=== PATIENT | female | born 1945 | race Caucasian/White ===

== ENCOUNTER 2019-06-21 07:14 | Inpatient (IN) | payer OTHER ==
[~2019-06-21] VITALS: Ht 162.6 cm; Wt 63.4 kg
[~2019-06-21 07:14] MED LIST: ASPI-404 PO; ATOR10TA PO; CALC-509 PO; DIME50TA PO; HYDR25TA4 PO; LISI-710 PO; LORA-622 PO; OMEP20TA PO; [UNRECOGNIZED DRUG - CODE] PO
[2019-06-21] MEDS ORDERED: ceFAZolin 1GM/50ML 100 ML IV ONE (08:44)
[2019-06-21] MEDS ORDERED: ETOMIDATE (2MG/ML) 20ML VIAL IV ONE (11:48)
[2019-06-21] MEDS ORDERED: ROCURONIUM 10MG/ML 10ML VIAL IV ONE (11:49)
[2019-06-21] MEDS ORDERED: LIDOCAINE 1% (LOCAL ANESTH.) PF 5ml SDV ONE (11:49)
[2019-06-21] MEDS ORDERED: ACETAMINOPHEN IV 100 ML IV ONE (12:38)
[2019-06-21] MEDS ORDERED: PREGABALIN CAPSULE 75 MG CAP ONE (12:43)
[2019-06-21] MEDS ORDERED: CELECOXIB 100 MG CAP ONE (12:43)
[2019-06-21] MEDS ORDERED: PREGABALIN 25 MG CAP PO ONE (12:45)
[2019-06-21] MEDS ORDERED: CELECOXIB 100 MG CAP PO ONE (12:45)
[2019-06-21] MEDS ORDERED: TRANEXAMIC ACID 20 ML ONE (12:51)
[2019-06-21] MEDS ORDERED: BUPIVACAINE 0.25% INJ 50ML VIAL ONE (12:51)
[2019-06-21] MEDS ORDERED: EPINEPHrine HCL 1 MG/1 ML AMP ONE ×5 (12:52→14:56)
[2019-06-21] MEDS ORDERED: SUCCINYLCHOLINE CHLORIDE 20 MG/ML 10ML VIAL IV ONE (13:00)
[2019-06-21] MEDS ORDERED: MIDAZOLAM HCL 1MG/1ML-2 ML VIAL ONE (13:03)
[2019-06-21] MEDS ORDERED: METOCLOPRAMIDE HCL 5MG/ml INJ 2ml VIAL ONE (13:03)
[2019-06-21] MEDS ORDERED: fentaNYL CITRATE 100 MCG/2 ML VL ONE (13:51)
[2019-06-21] MEDS ORDERED: SODIUM CHLORIDE LOCK 10 ML ONE ×3 (14:06→17:30)
[2019-06-21] MEDS ORDERED: ePHEDrine SULFATE 50 MG/ML AMP ONE (14:06)
[2019-06-21] MEDS ORDERED: PHENYLEPHRINE HCL 10 MG/ML VL ONE (14:36)
[2019-06-21] MEDS ORDERED: MEPERIDINE HCL (50 MG/ML) 1 ML VIAL ONE (15:21)
[2019-06-21] MEDS ORDERED: ePHEDrine SULFATE 50 MG/ML AMP IV PRN (16:30)
[2019-06-21] MEDS ORDERED: hydrALAZINE HCL 20 MG/ML VL IV PRN (16:30)
[2019-06-21] MEDS ORDERED: ONDANSETRON HCL 4 MG/2 ML VIAL IV PRN (16:30)
[2019-06-21] MEDS ORDERED: HYDROmorphone HCL 2 MG/ML VL IV PRN ×3 (16:30→18:00)
[2019-06-21] MEDS ORDERED: NALOXONE HCL 0.4 MG/ML VIAL IV PRN (16:30)
[2019-06-21] MEDS ORDERED: VANCOMYCIN HCL 1000 MG VL ONE (17:28)
[2019-06-21] MEDS ORDERED: GLYCOPYRROLATE 0.2 MG/ML 1ML VIAL ONE (17:29)
[2019-06-21] MEDS ORDERED: KETOROLAC TROMETH 30 MG/ML 1ML VIAL ONE (17:29)
[2019-06-21] MEDS ORDERED: NEOSTIGMINE 1 MG/ML INJ (10mg/10ML VIAL) ONE (17:29)
[2019-06-21] MEDS ORDERED: MORPHINE SULF(PF) 0.5MG/ML 10ML VIAL ONE (17:29)
[2019-06-21] MEDS ORDERED: ceFAZolin 1GM VL ONE (17:30)
[2019-06-21] MEDS ORDERED: ACETAMINOPHEN/CODEINE#3 (300/30mg) TAB PO PRN (18:00)
[2019-06-21] MEDS ORDERED: HYDROcodone-ACET 5/325MG TAB PO PRN ×3 (18:00)
[2019-06-21] MEDS ORDERED: ceFAZolin 1GM/50ML 50 ML IV SCH (18:00)
--- NOTE | 2019-06-21 18:50 | NUR ---
Patient on O2 at 3 LPM. Non acute distress noted. Bedside commode provided. Bed alarm on.
--- NOTE | 2019-06-21 18:50 | NUR ---
MS admit from Surgery/PACU Received patient via bed from PACU/Surgery. Patient awake, oriented x4, two Aqua cell dressing on the right shoulder, no bleeding noted. METAL WEIGHER said the Aqua cell dressing is good for two weeks. Patient denies pain at this time. Daughter Lilibeth Geller and a male family member at bedside.
[2019-06-21] MEDS: D5W/LACTATED RINGERS 1,000 ML IV SCH (18:59)
[2019-06-21 19:00] VITALS: BP 87/51
--- NOTE | 2019-06-21 19:05 | NUR ---
Endorsed patient to [facility] and Resource [facility].
--- NOTE | 2019-06-21 19:32 | NUR ---
Opening Shift Note Assumed care of patient. Patient is awake and alert. Denies pain, no signs or symptoms of distress noted. Family is at bedside. Instructed patient on plan of care, will continue to monitor.
[2019-06-21 20:00] VITALS: BP 87/51
[2019-06-21 21:00] VITALS: BP 86/51
[2019-06-21 21:30] VITALS: BP 86/43
[2019-06-21 22:00] VITALS: BP 99/55
[2019-06-21] MEDS ORDERED: ATORVASTATIN 20 MG TAB PO SCH (22:00)
[2019-06-21] MEDS: DIMENHYDRINATE 50 MG PO SCH (22:00)
[2019-06-21] MEDS: [UNRECOGNIZED DRUG - OTHER] PO SCH (22:00)
[2019-06-21] MEDS: ceFAZolin 1GM 2 GM in D5W 5% 100 ML IV SCH (22:05)
[2019-06-21] MEDS: CALCIUM W/VIT D (600MG/400IU) TAB PO SCH (22:14)
[2019-06-21 23:00] VITALS: BP 96/47
[2019-06-22] VITALS (11 sets, daily range): BP systolic 79–127; BP diastolic 43–64
[2019-06-22] MEDS: D5W/LACTATED RINGERS 1,000 ML IV SCH ×2 (03:57→13:55)
[2019-06-22] MEDS: ceFAZolin 1GM 2 GM in D5W 5% 100 ML IV SCH ×2 (05:44→15:52)
[2019-06-22] MEDS: ACETAMINOPHEN 325 MG TAB PO PRN ×2 (06:27→15:52)
--- NOTE | 2019-06-22 06:50 | NUR ---
New Iv started PATIENT CALLED STATING IV DISCOMFORT. IV IN RIGHT HAND INFILTRATED. HAND ELEVATED AND WARM COMPRESS APPLIED. NEW IV 22 GAUGE STARTED ON LEFT HAND AFTER ONE ATTEMPT. FLUIDS RESTARTED. PATIENT TOLERATING WELL.
[2019-06-22] MEDS: DIMENHYDRINATE 50 MG PO SCH (10:00)
[2019-06-22] MEDS ORDERED: PANTOPRAZOLE 40 MG TAB PO SCH (10:00)
[2019-06-22] MEDS ORDERED: HCTZ 25 MG TAB PO SCH (10:00)
[2019-06-22] MEDS ORDERED: LORATADINE 10 MG TAB PO SCH (10:00)
[2019-06-22] MEDS: [UNRECOGNIZED DRUG - OTHER] PO SCH (10:00)
[2019-06-22] MEDS ORDERED: LISINOPRIL 10 MG TAB PO SCH (10:00)
--- NOTE | 2019-06-22 10:48 | NUR ---
Discharge planning per SS consult, patient has orders to dc home. Placed a call to the attending nurse Araseli and was advised that patient had a shoulder surgery and did not have any needs on discharge.
[2019-06-22] MEDS: CALCIUM W/VIT D (600MG/400IU) TAB PO SCH (10:51)
--- NOTE | 2019-06-22 14:59 | NUR ---
Assessment Pt is a 74 yr old alert and oriented female. Pt lives with her daughter Lambert Grimes, who is her emergency contact at [phone]. Prior to admit, pt was ambulatory, and independent with ADL's, cooking and cleaning. Pt uses shower chair to bathe. Pt admitted with a dislocated shoulder and ended needing surgery for a "full replacement." Pt receives SS and SSI. Pt has an Advanced Directive and stated that her daughter Lambert is her POA. Pt stated that she plans to go back home with daughter and that her daughter will help with her needs including helping with bathing and dressing. Pt daughter will transport pt home. No needs or concerns at this time. Addendum: 06/22/19 at 1507 by AMANUEL ROWE Amended: Links added.
--- NOTE | 2019-06-22 16:30 | NUR ---
LEONEL FROM [facility]TH[facility] AT BEDSIDE APPLYING SLING TO RIGHT SHOULDER/ARM.
== END 2019-06-22 16:50 | disposition home or self-care (01) | DRG 483 ==
LOC: SUR 07:14 → WEST WING 07:15 → TELE-WESTW 06-22 04:18
PROVIDERS: ADMIT Orthopaedic Surgery Sports Medicine; ATTEND Orthopaedic Surgery Sports Medicine
PROC: 0RRJ00Z Replacement of Right Shoulder Joint with Reverse Ball and Socket Synthetic Substitute, Open Approach (ICD-10-PCS; principal; 2019-06-21 13:27)
PROC: 0LS30ZZ Reposition Right Upper Arm Tendon, Open Approach (ICD-10-PCS; 2019-06-21 13:27)
DX: S42.291A Other displaced fracture of upper end of right humerus, initial encounter for closed fracture (principal); M19.90 Unspecified osteoarthritis, unspecified site; M24.411 Recurrent dislocation, right shoulder; M75.100 Unspecified rotator cuff tear or rupture of unspecified shoulder, not specified as traumatic; Z96.611 Presence of right artificial shoulder joint; I10 Essential (primary) hypertension; K21.9 Gastro-esophageal reflux disease without esophagitis; E78.00 Pure hypercholesterolemia, unspecified; G47.30 Sleep apnea, unspecified; Z90.710 Acquired absence of both cervix and uterus; Z79.899 Other long term (current) drug therapy
CPT/HCPCS: 73020; 76001; 86850; 86870; 86900; 86901; 97163; A4565; G0378; J0131; J0171; J0330; J0690; J1885; J2250; J3490; J7060